=== PATIENT | female | born 2000 | race Two or more races ===

== ENCOUNTER 2023-01-18 18:08 | Observation (INO) | payer MEDICAID ==
[~2023-01-18] VITALS: Ht 154.9 cm; Wt 66.7 kg
== END 2023-01-18 19:31 | disposition home or self-care (01) ==
LOC: LDRP 18:08
PROVIDERS: ADMIT Obstetrics & Gynecology; ATTEND Obstetrics & Gynecology
DX: O9A.213 Injury, poisoning and certain other consequences of external causes complicating pregnancy, third trimester (principal); T80.62XA Other serum reaction due to vaccination, initial encounter; T50.A95A Adverse effect of other bacterial vaccines, initial encounter; O26.893 Other specified pregnancy related conditions, third trimester; R06.02 Shortness of breath; R20.2 Paresthesia of skin; O26.813 Pregnancy related exhaustion and fatigue, third trimester; Z3A.34 34 weeks gestation of pregnancy; Y92.89 Other specified places as the place of occurrence of the external cause
CPT/HCPCS: 59025; 81002

== ENCOUNTER → 2023-02-13 | Outpatient (CLI) | payer MEDICAID ==
[2023-02-13 15:08] LABS: Basophils # (auto) 0.1 10 ^3/uL (0-0.2); Basophils % (auto) 0.8 % (0.0-2.0); Eosinophils # (auto) 0.1 10 ^3/uL (0-0.8); Eosinophils % (auto) 0.6 % (0.0-7.0); Hematocrit 38.4 % (36.0-46.0); Hemoglobin 12.3 g/dL (12.2-16.2); Lymphocytes % (auto) 22.3 % (10.0-50.0); Mean Corpuscular Hemoglobin 27.3 pg (28.0-32.0); Mean Corpuscular Hgb Conc. 32.1 g/dL (32.0-36.0); Mean Corpuscular Volume 85.1 fL (80.0-100.0); Monocytes # (auto) 0.9 10 ^3/uL (0-1.3); Monocytes % (auto) 9.5 % (0.0-12.0); Neutrophils # (auto) 6.1 10 ^3/uL (1.6-8.6); Neutrophils % (auto) 66.8 % (37.0-80.0); Nucleated Red Blood Cells % 0.1 %; Red Blood Cells 4.51 10^6/uL (4.0-5.20); Red Cell Distribution Width 16.2 % (11.8-14.3); White Blood Cell 9.1 10^3/uL (4.4-10.8)
== END | disposition home or self-care (01) ==
LOC: LAB 14:56
PROVIDERS: ATTEND Obstetrics & Gynecology
DX: Z34.80 Encounter for supervision of other normal pregnancy, unspecified trimester (principal); Z3A.00 Weeks of gestation of pregnancy not specified
CPT/HCPCS: 36415; 85025

== ENCOUNTER 2023-02-24 02:25 | Inpatient (IN) | payer MEDICAID ==
[~2023-02-24] VITALS: Ht 154.9 cm; Wt 68.5 kg
[2023-02-24] MEDS ORDERED: LACTATED RINGER'S 1,000 ML IV SCH (03:00)
[2023-02-24] MEDS ORDERED: LIDOCAINE 2%HCL (LOCAL ANESTH.) INJ 20ML MDV IJ PRN (03:00)
[2023-02-24] MEDS ORDERED: PROMETHAZINE HCL 25 MG/ML 1ML IV PRN (03:00)
[2023-02-24] MEDS ORDERED: BUTORPHANOL TARTRATE 2 MG/1 ML VIAL IV PRN ×2 (03:00)
[2023-02-24] MEDS ORDERED: PHISODERM TOP SOLN 240ML BTL TOP PRN (03:00)
[2023-02-24] MEDS ORDERED: DERMOPLAST 60ML BOTTLE TOP PRN (03:00)
[2023-02-24] MEDS ORDERED: WITCH HAZEL-GLYCERIN PAD TOP PRN (03:00)
[2023-02-24] MEDS ORDERED: METHYLERGONOVINE MALEATE 0.2 MG/ML AMP IM PRN (03:15)
[2023-02-24] MEDS ORDERED: diphenhdrAMINE HCL 50 MG/1 ML VL IV PRN (03:15)
[2023-02-24] MEDS ORDERED: PROMETHAZINE HCL 25 MG/ML 1ML IM PRN (03:15)
[2023-02-24] MEDS ORDERED: TRANEXAMIC ACID 1,000 MG in SODIUM CHL 0.9% 100 ML IV PRN (03:15)
[2023-02-24] MEDS ORDERED: fentaNYL CITRATE 100 MCG/2 ML VL IV PRN (03:15)
[2023-02-24] MEDS ORDERED: CARBOPROST TROMETHAMINE 250 MCG/1ML VIAL IM PRN (03:15)
[2023-02-24] MEDS ORDERED: miSOPROStol 100 mcg TAB SL PRN (03:15)
[2023-02-24] MEDS ORDERED: MINERAL OIL TOPICAL 10ml TOP PRN (03:15)
[2023-02-24] MEDS ORDERED: ONDANSETRON HCL 4 MG/2 ML VIAL IV PRN (03:15)
[2023-02-24] MEDS ORDERED: ACETAMINOPHEN 325 MG TAB PO PRN ×2 (03:15→05:30)
[2023-02-24 03:24] LABS: Basophils # (auto) 0.1 10 ^3/uL (0-0.2); Basophils % (auto) 0.8 % (0.0-2.0); Eosinophils # (auto) 0.1 10 ^3/uL (0-0.8); Eosinophils % (auto) 0.7 % (0.0-7.0); Hematocrit 38.9 % (36.0-46.0); Hemoglobin 12.5 g/dL (12.2-16.2); Lymphocytes # (auto) 2.6 10 ^3/uL (0.4-5.4); Lymphocytes % (auto) 25.5 % (10.0-50.0); Mean Corpuscular Hgb Conc. 32.2 g/dL (32.0-36.0); Mean Corpuscular Volume 83.8 fL (80.0-100.0); Monocytes # (auto) 0.9 10 ^3/uL (0-1.3); Monocytes % (auto) 8.9 % (0.0-12.0); Neutrophils # (auto) 6.5 10 ^3/uL (1.6-8.6); Neutrophils % (auto) 64.1 % (37.0-80.0); Nucleated Red Blood Cells % 0.1 %; Red Blood Cells 4.63 10^6/uL (4.0-5.20); Red Cell Distribution Width 16.4 % (11.8-14.3); White Blood Cell 10.2 10^3/uL (4.4-10.8)
[2023-02-24 03:39] LABS: INR 0.92 (0.9-1.15); Partial Thromboplastin Time 28.3 SEC (24.5-34.5); Prothrombin Time 9.7 sec (9.3-11.8)
[2023-02-24 03:41] LABS: Alanine Aminotransferase 14 U/L (7-40); Albumin 4.1 g/dL (3.2-4.8); Alkaline Phosphatase 214 U/L (46-116); Anion Gap 9 (5-15); Aspartate Aminotransferase 19 U/L (13-40); BUN/Creatinine Ratio 11.1 (10.0-20.0); Bilirubin, Total 0.3 mg/dL (0.2-1.0); Blood Urea Nitrogen 8 mg/dL (9-23); Calcium 9.4 mg/dL (8.5-10.1); Carbon Dioxide 23 mmol/L (20-30); Chloride 105 mmol/L (98-107); Glucose 84 mg/dL (74-106); Potassium 3.8 mmol/L (3.5-5.1); Sodium 137 mmol/L (136-145); Total Protein 6.8 g/dL (5.7-8.2)
[2023-02-24 04:23] LABS: Urine Bacteria FEW /hpf (None Seen); Urine Blood Negative /uL (Negative); Urine Clarity Clear (Clear); Urine Mucus FEW (None Seen); Urine Protein, UAD Negative (Negative); Urine Specific Gravity 1.012 (1.001-1.035); Urine Urobilinogen Normal (Negative); Urine WBC 1 /hpf (0 - 5); Urine pH 6.5 (5.0-8.0)
[2023-02-24 04:24] LABS: Urine Color STRAW (Yellow)
[2023-02-24 04:34] LABS: Amphetamine Screen, Urine Neg (NEGATIVE); Barbiturate Scree,Urine Neg (NEGATIVE); Benzodiazephine Screen, Urine Neg (NEGATIVE); Cannabinoid Screen, Urine Neg (NEGATIVE); Cocaine Screen, Urine Neg (NEGATIVE); Opiate Scree,Urine Neg (NEGATIVE); Phencyclidine Screen, Urine Neg (NEGATIVE)
[2023-02-24] MEDS ORDERED: LACT. RINGERS/OXYTOCIN 20UNITS 500 ML IV ONE ×4 (04:45→06:15)
[2023-02-24] MEDS ORDERED: LACT. RINGERS/OXYTOCIN 20UNITS 1,000 ML IV ONE (04:46)
[2023-02-24] MEDS ORDERED: IBUPROFEN 600 MG TAB PO PRN (05:30)
[2023-02-24] MEDS ORDERED: DIPHENOXYLATE W/ATROPINE 2.5 MG TAB PO PRN (06:00)
[2023-02-24] MEDS ORDERED: DIPHENOXYLATE W/ATROPINE 2.5 MG TAB PO SCH (06:00)
[2023-02-24 07:00] VITALS: BP 125/79; PULSE 84; RESP 18; TEMP 98.2; O2SAT 96
[2023-02-24 10:59] VITALS: BP 77/42; PULSE 83; RESP 16; TEMP 99.1
[2023-02-24 15:00] VITALS: BP 94/53; PULSE 71; RESP 16; TEMP 99.2
[2023-02-24 20:28] VITALS: BP 99/58; PULSE 80; RESP 18; TEMP 97.9
[2023-02-24] MEDS ORDERED: DOCUSATE SOD 100 MG CAP PO SCH (22:00)
[2023-02-24 23:25] VITALS: BP 94/58; PULSE 78; RESP 18; TEMP 98.3
[2023-02-25 03:15] VITALS: BP 99/58; PULSE 90; RESP 18; TEMP 98.2
[2023-02-25 07:02] VITALS: BP 98/57; PULSE 77; RESP 18; TEMP 97.8; O2SAT 98
[2023-02-25 07:16] LABS: Basophils # (auto) 0.1 10 ^3/uL (0-0.2); Basophils % (auto) 0.6 % (0.0-2.0); Eosinophils # (auto) 0.1 10 ^3/uL (0-0.8); Eosinophils % (auto) 0.8 % (0.0-7.0); Hematocrit 34.1 % (36.0-46.0); Lymphocytes # (auto) 3.3 10 ^3/uL (0.4-5.4); Lymphocytes % (auto) 30.2 % (10.0-50.0); Mean Corpuscular Hemoglobin 27.3 pg (28.0-32.0); Mean Corpuscular Hgb Conc. 32.3 g/dL (32.0-36.0); Mean Corpuscular Volume 84.3 fL (80.0-100.0); Monocytes # (auto) 0.9 10 ^3/uL (0-1.3); Monocytes % (auto) 8.2 % (0.0-12.0); Neutrophils # (auto) 6.6 10 ^3/uL (1.6-8.6); Neutrophils % (auto) 60.2 % (37.0-80.0); Red Blood Cells 4.05 10^6/uL (4.0-5.20); Red Cell Distribution Width 16.5 % (11.8-14.3); White Blood Cell 10.9 10^3/uL (4.4-10.8)
[2023-02-25 11:15] VITALS: BP 102/66; PULSE 95; RESP 18; TEMP 98; O2SAT 96
[2023-02-25] MEDS ORDERED: PREN1TAB71 OR (11:19)
[2023-02-26 09:07] LABS: RPR Non Reactive (Non Reactive)
[2023-02-27 19:06] LABS: Treponema pallidum Ab (FTA-Ab) Non Reactive (Non Reactive)
== END 2023-02-25 12:28 | disposition home or self-care (01) | DRG 560 ==
LOC: LDRP 02:25 → OBSVTOIN 03:01 → LDRP 03:59
PROVIDERS: ADMIT Obstetrics & Gynecology; ATTEND Obstetrics & Gynecology
PROC: 10E0XZZ Delivery of Products of Conception, External Approach (ICD-10-PCS; principal; 2023-02-24)
DX: O77.0 Labor and delivery complicated by meconium in amniotic fluid (principal); Z37.0 Single live birth; Z3A.39 39 weeks gestation of pregnancy
CPT/HCPCS: 36415; 59025; 59409; 80053; 80307; 81001; 81002; 85025; 85610; 85730; 86592; 86850; 86900; 86901; 94760; 96360; 96365; 96366; G0378; J2590

== ENCOUNTER 2025-02-21 18:33 | Observation (INO) | payer MEDICAID ==
[~2025-02-21] VITALS: Ht 165.1 cm; Wt 63.5 kg
[~2025-02-21 18:33] MED LIST: PREN1TAB71 OR
--- NOTE | 2025-02-21 20:13 | DVH ---
LIMITED OB ULTRASOUND > 14 WKS: HISTORY: Confirm viability TECHNIQUE: Multiple real-time grayscale images of the gravid uterus with duplex Doppler color flow an d M-mode spectral analysis. TRANSDUCER: Transabdominal FINDINGS: IUP single live fetus at 21 weeks 6 days based on composite averages of the BPD, head circumference, abdominal circumference and femur length heart rate 138 beats per minute Cervix 4.05 cm and appears closed Breech Presentation Posterior Grade 2 Placenta without previa or abruption. IMPRESSION: 1. IUP single live fetus at 21 weeks 6 days AUA corresponding to an STACEY of 06/28/2025 2. FHR: 138 bpm 3. Cervix 4.1 cm long and appears closed. 4. Good motion.
--- NOTE | 2025-02-21 20:22 | DVHDS2 ---
Physician Discharge Progress N Final Diagnosis: IUP at 21w 6d h/o PPD Operations or Procedures: Operations or Procedures S: 24yo G4, 2012 with EDC of 2025, EGA 21w 6d presents to the place with the report she has not felt movements this weekend. States that baby usually moves a lot. She rports no VB, no LOF, no contraction, RITCHIE, vision changes or epigastric pain. Receiving care with [facility] - Dr. Cotto h/o PPD O: A&O x3, NAD, well groomed. pleasant. Appropriate and normal mood and affect Afebrile, VSS Respiration unlabored Heart and lungs sounds: normal Abdomen: Gravid, non-tender to palpation. Extremities: No edema P: Oral hydration with water EFM: FHT 132-147bpm with hand held Doppler and 130 - 150s bpm with EFM US transducer Tocotransducer - no contraction notes, none palpated, abdomen soft audible movement while checking FHT Visible FM noted on ultrasound done at the bedside Pt now states she now feels FM A: IUP at 21w 6d Fetus with normal cardiac activity and movements noted via Ultrasound P: Discharge home Pt education done re: > need for adequate hydration; advised to increase water intake > need to follow up with OB Provider > 2nd trimester emergency S&S, > labor and pre-eclampsia precautions Keep all scheduled appointments; seek care sooner if needed Condition on Discharge: Good Disposition: Home Discharge Instructions: Diet: Regular Activity: No Restrictions, As Tolerated Medications: None; continue vitamin Follow Up Care: Discharge Statement: Pt education done re > need for adequate hydration; advised to increase water intake > need to follow up with OB Provider > 2nd trimester emergency S&S, > labor and pre-eclampsia precautions Keep all scheduled appointments; seek care sooner if needed "Patient was advised to return to the ER or call 911 if any headaches, dizziness, shortness of breath, chest pain, abdominal pain, bleeding, fevers, or worsening of medical condition. Patient was counseled about treatment plan, medications, possible side effects, patientverbalized understanding. All questions were answered to the best of my ability. This discharge took greater then 30 minutes in planning, reviewing documentation, counseling the patient, and discussing with other team members." Visit Coding OBGYN Date of Service: Feb 21, 2025 Billing Provider: WILLARD ALFORD CNM DIRECTOR ENGINEERING Common Visit Codes: [id number] INP/OBS CARE (HIGH) DIRECTOR ENGINEERING Procedure Codes: 70104-97- NON-STRESS TEST WILLARD ALFORD CNM Feb 21, 2025 20:22
== END 2025-02-21 19:57 | disposition home or self-care (01) ==
LOC: LDRP 18:33
PROVIDERS: ADMIT Obstetrics & Gynecology; ATTEND Obstetrics & Gynecology
DX: O36.8120 Decreased fetal movements, second trimester, not applicable or unspecified (principal); Z3A.21 21 weeks gestation of pregnancy; Z98.890 Other specified postprocedural states
CPT/HCPCS: 76815; 81002; 94760; G0378

== ENCOUNTER 2025-04-09 00:28 | Observation (INO) | payer MEDICAID ==
[~2025-04-09] VITALS: Ht 152.4 cm; Wt 69.4 kg
--- NOTE | 2025-04-09 01:26 | DVHDS2 ---
Physician Discharge Progress N Final Diagnosis: IUP at 28w4d Secondary Diagnosis: Not in labor Operations or Procedures: Operations or Procedures SUBJECTIVE Grisel Coughlin is a 24 yo with IUP at 28w4d presenting to [facility] for [facility] contractions Patient states for the last two weeks she has been feeling on and off cramping. It now feels lower in the pelvis than before. The cramping is not painful. Denies leaking fluid or vaginal bleeding. Denies headache, blurry vision, or epigastric pain. Denies dysuria, pelvic pain, or pelvic itching. States positive movement. She has a 5 year old and a 2 year old at home. PNC: yes, with Dr Cotto and Dr Dean EDC: 06/28/25 Review of Systems: Neuro: No complaints Heart: No complaints Lungs: No complaints GI: Mild cramping : No complaints Skin: No complaints Extremities: No complaints OBJECTIVE VSS FHR: Baseline: 135 Variability: Moderate Accelerations: Present Decelerations: Absent Category: 1 UCs: none noted Neuro: A&O x4. No apparent distress. Affect appropriate Heart: Regular rate and rhythm Lungs: Clear bilaterally GI: Gravid. No tenderness : Discussed with patient and patient declined. Deferred Skin: Dry and intact. No rashes or lesions Extremities: Cap refill WNL. ASSESSMENT 24 yo with IUP at 28w4d Not in labor Category 1 Tracing PLAN -Discussed importance of hydration and balancing activity with rest in . Discussed nonpharmacologic ways to alleviate common discomforts of . Recommended patient get a support band. Patient states she has been meaning to get one and will try it as soon as she can -Appt with Dr Cotto next week -Discussed labor precautions and kick counts. Answered all patient questions and concerns. Patient verbalizes understanding. Condition on Discharge: Good Disposition: Home Discharge Instructions: Diet: Regular Activity: No Restrictions, As Tolerated Medications: No change Follow Up Care: Discharge Statement: "Patient was advised to return to the ER or call 911 if any headaches, dizzines s, shortness of breath, chest pain, abdominal pain, bleeding, fevers, or worsening of medical condition. Patient was counseled about treatment plan, medications, possible side effects, patientverbalized understanding. All questions were answered to the best of my ability. This discharge took greater then 30 minutes in planning, reviewing documentation, counseling the patient, and discussing with other team members." Visit Coding OBGYN Date of Service: Apr 09, 2025 Billing Provider: RONALD AMADOR CNM FULFILLMENT COORDINATOR Common Visit Codes: [id number] INP/OBS CARE (MOD) FULFILLMENT COORDINATOR Procedure Codes: 30300-87- NON-STRESS TEST RONALD AMADOR CNM Apr 09, 2025 01:26
== END 2025-04-09 02:01 | disposition home or self-care (01) ==
LOC: LDRP 00:28
PROVIDERS: ADMIT Obstetrics & Gynecology; ATTEND Obstetrics & Gynecology
DX: O47.03 False labor before 37 completed weeks of gestation, third trimester (principal); Z3A.28 28 weeks gestation of pregnancy; Z98.890 Other specified postprocedural states
CPT/HCPCS: 59025; 81002; 94760; A4649; G0378